=== PATIENT | female | born 1955 | race Caucasian/White ===

== ENCOUNTER 2024-02-29 11:05 | Day surgery (SDC) | payer MEDICAID, OTHER, SELFPAY ==
[2024-02-29] VITALS (10 sets, daily range): BP systolic 114–171; BP diastolic 55–101; BMI 38.1
[2024-02-29 11:58] LABS: Glucose - Point of Care 96 mg/dl (70-99)
--- NOTE | 2024-02-29 14:32 | ITS.CL.CATH ---
Salvage Laborer - Catheterization
Cardiac Catheterization
Procedure Report:
CARDIAC CATHETERIZATION REPORT
Date of Procedure: 02/29/2024
Referring: Jayme Marsh MD
Indication: Exertional dyspnea with abnormal stress test
�
HEMODYNAMIC DATA
AO: 185/100
LV: 185/16
�
LEFT VENTRICULOGRAPHY: Normal left ventricular wall motion with EF 64%
�
CORONARY ANGIOGRAPHY
Dominance: Right
Left Main: Normal
LAD: The LAD is proximally occluded just past the takeoff of the first septal diamond cutter. There may be a tiny channel although it appears more to be a bridging collateral at the site of occlusion and there is a collateral from the very proximal LAD
to the mid LAD. The mid and distal LAD are underfilled but did not appear to demonstrate any high-grade stenoses. The first diagonal branch originates from the LAD at the point where it reconstitutes from the proximal LAD collateral.
Circumflex: The circumflex gives rise to several small obtuse marginal branches and he is occluded distal to the takeoff of a large bifurcating OM 3. OM 3 has 50% stenosis proximal to the bifurcation site. A relatively small OM 4 fills via
collaterals from the RCA
RCA: Large dominant vessel with tandem 60% mid stenoses. The PDA and four RPLs have mild luminal irregularities
�
Closure Device: None-the procedure was performed via the right radial artery. The Brown's test was normal prior to the procedure.
�
Radiation (mGy): 291
DAP (cm2.Gy): 22.6
Fluoroscopy time: 1.8 minutes
�
CONCLUSIONS
1:�Systemic hypertension
2:�Normal left ventricular function with EF 64%
3. Severe triple-vessel CAD as described
4. Recommend CABG with grafting of the LAD, large OM 3, and RPDA. If the patient refuses CABG a dedicated TOOL DISPATCHER comb machine operator may take on the LAD occlusion but with significant 3 v CAD this is an inferior revascularization strategy. Pt advised to restrict
activities until revascularization has been accomplished
�
�
Copy to: Jayme Marsh MD, Lissette Valentino MD
�
Chandler Oconnell MD, [facility], [facility]
--- NOTE | 2024-02-29 16:03 | PTCARENOTE ---
Educational packets printed from [employer] in Finnish:
1. Coronary Artery Disease
2. Lowering your risk of heart disease
3. Healthy-heart diet
4. Nitroglycerin
== END 2024-02-29 18:00 | disposition home or self-care (01) ==
LOC: CATH 11:05
PROVIDERS: ATTENDING PHYSICIAN Internal Medicine Cardiovascular Disease; FAMILY PHYSICIAN Internal Medicine; REFERRING PHYSICIAN Internal Medicine Cardiovascular Disease
DX: I25.10 Atherosclerotic heart disease of native coronary artery without angina pectoris (principal); I10 Essential (primary) hypertension; R06.09 Other forms of dyspnea; R94.39 Abnormal result of other cardiovascular function study; Z79.82 Long term (current) use of aspirin
CPT/HCPCS: 82962; 93458; C1894; Q9967

== ENCOUNTER 2024-04-14 10:39 | Day surgery (SDC) | payer OTHER, SELFPAY ==
[2024-04-06 12:53] VITALS: BMI 33.2
--- NOTE | 2024-04-06 13:14 | HPS.HSE ---
Family Physician
-
Family Physician: Lissette Valentino
Chief Complaint
-
Shortness of breath. Severe, triple vessel coronary artery disease.
History of Present Illness
The patient is a 68 year old female presenting today with recent complaints of shortness of breath. The patient's primary language is Montserratian. She is accompanied by her daughter, Diana, today for further translation. She notes that she
becomes easily short of breath with minimal activity. She cannot climb 1 flight of stairs without experiencing shortness of breath. In addition to her shortness of breath, she also reports retrosternal, exertional chest discomfort without radiation.
She does have multiple risk factors for coronary artery disease such such hypertension, hyperlipidemia, prediabetes, and an extensive family history of cardiovascular issues. Reportedly, her father at a young age due to a myocardial infarction.
Because of her risk factors, she was advised to undergo an echocardiogram and stress test for symptom evaluation. An echocardiogram on 12/20/2023 noted a preserved ejection fraction without significant valvular abnormalities. Her stress test on
02/15/2024, however, had very deep ST depressions, suggesting apical ischemia. She proceeded with a cardiac catheterization on 02/29/2024. Severe tipple vessel coronary artery disease was noted and CABG with grafting of the LAD, large OM 3, and RPDA
was recommended. The patient at this time does not feel comfortable proceeding with CABG and would instead prefer to undergo RCA and left circumflex PCI. She denies any current complaints today such as chest pain and shortness of breath at rest,
palpitations, nausea, vomiting, diarrhea, lightheadedness, dizziness, cough, sore throat, or fever.
Medical History
Past Medical History
Past Medical History: Reports Other
Additional Past Medical History:
1. Shortness of breath with associated exertional chest discomfort.
2. Severe, triple vessel coronary artery disease.
3. Hypertension.
4. Hyperlipidemia.
5. CVA, 2018, without residual deficits.
6. Fatty liver disease.
7. Migraines.
8. Vertigo.
9. Herniated lumbar discs.
10. Arthritis.
11. Hypothyroidism.
12. Obesity, BMI 33.2.
Past Surgical History: Reports Other
Additional Past Surgical History:
1. Cardiac catheterization.
2. Cholecystectomy.
Social History
Tobacco: Non-smoker
Alcohol: None
Living: Alone (in a first floor apartment. )
Family History
Family History: Early CAD
Allergies / Home Medications
Allergy/Medication List:
Home medications:
1. Aspirin 81 mg p.o. daily.
2. Atorvastatin 40 mg p.o. daily.
3. Levothyroxine 88 mcg p.o. daily.
4. Metoprolol Succinate 50 mg p.o. daily.
5. Nitroglycerin 0.4 mg sublingual every 5 minutes as needed (maximum of 3 doses).
6. Olmesartan-Hydrochlorothiazide 40-25 mg, 1/2 tablet p.o. daily.
Allergies: No known allergies.
Review of Systems
-
A 12 point ROS was completed and negative except as noted: Yes
Physical Exam
Vital Signs
Blood pressure 152/78. Heart rate 65. Respirations 18. Pulse ox 97% on room air.
Height 5 feet. Weight 77 kg. BMI 33.2.
Physical Exam
General: Well Developed, Well Nourished and No Apparent Distress
HEENT: NormoCephalic, Moist mucous membranes, Atraumatic and PERRLA
Respiratory: Clear
Cardiac: Regular Rhythm
GI: Soft, Non Tender, Non Distended and Other (Obese. )
Musculoskeletal: Normal Gait & Station
Skin: Warm and Dry
Neuro: AO x 3 and Nonfocal/grossly intact
Laboratory Results
-
DIAGNOSTIC STUDIES as of 04/06/2024: White blood cell count 9.8. Hemoglobin 14.2. Platelet count 234,000.
DIAGNOSTIC STUDIES as of 04/07/2024: Sodium 142. Potassium 4.1. BUN 14. Creatinine 0.6. Glucose 95. Calcium 10.2. AST 35. ALT 29. Albumin 5.0.
EKG 04/06/2024: Normal sinus rhythm. Low voltage QRS. Inferior infarct, age undetermined. Cannot rule out anterior infarct, age undetermined.
Impression/Plan
-
IMPRESSION/PLAN:
1. Shortness of breath and triple vessel coronary artery disease: The patient is in need of a RCA and left circumflex PCI with Dr. Aldair Sierra on 04/14/2024. The benefits and risks of the procedure have been explained to the patient. The patient
understands these risks and wishes to proceed. She is aware to continue her baby Aspirin daily up to and including the morning of her procedure.
[2024-04-06 13:42] LABS: % Basophils 0.7 % (0-2); % Eosinophils 1.1 % (0-6); % Immature Granulocytes 0.2 % (0-0.5); % Lymphocytes 36.4 % (20.5-51.1); % Monocytes 5.9 % (1.7-9.3); % Neutrophils 55.7 % (42.2-75.2); Absolute Basophils 0.1 10^3/uL (0-0.2); Absolute Eosinophils 0.1 10^3/uL (0-0.7); Absolute Lymphocytes 3.6 10^3/uL (1.2-3.4); Absolute Monocytes 0.6 10^3/uL (0.1-0.6); Absolute Neutrophils 5.5 10^3/uL (1.4-6.5); Hematocrit 41.6 % (37.0-47.0); Hemoglobin 14.2 g/dL (12.0-16.0); Mean Corp Hgb Conc. 34.1 g/dL (33.0-37.0); Mean Corpuscular Hgb 28.8 pg (27.0-31.0); Mean Corpuscular Volume 84.4 fL (81.0-99.0); Mean Platelet Volume 10.4 fL (7.4-10.4); Nucleated Red Blood Cells % 0 %; Platelet Count 234 10^3/uL (130-400); Red Blood Cell Count 4.93 10^6/uL (4.20-5.40); Red Cell Dist. Width 13.7 % (11.5-14.5); White Blood Cell Count 9.8 10^3/uL (4.8-10.8)
[2024-04-07 15:37] LABS: ALT (SGPT) 29 U/L (0-35); AST (SGOT) 35 U/L (14-36); Alkaline Phosphatase 82 U/L (38-126); Blood Urea Nitrogen 14 mg/dl (7-17); Calcium 10.2 mg/dl (8.4-10.2); Carbon Dioxide 28 mmol/L (22-30); Chloride 102 mmol/L (98-107); Estimated Creatinine Clearance 82 ml/min; Glucose 95 mg/dl (70-99); Potassium 4.1 mmol/L (3.5-5.1); Sodium 142 mmol/L (135-145); Total Bilirubin 0.8 mg/dl (0.2-1.3); eGFR > 60.00
[2024-04-14] VITALS (17 sets, daily range): BP systolic 114–164; BP diastolic 73–96
[2024-04-14 12:29] LABS: ACT-LR - POC 303 Seconds (116-155)
[2024-04-14 12:55] LABS: ACT-LR - POC 276 Seconds (116-155)
[2024-04-14 13:17] LABS: ACT-LR - POC 358 Seconds (116-155)
[2024-04-14 13:51] LABS: ACT-LR - POC 340 Seconds (116-155)
[2024-04-14 14:32] LABS: ACT-LR - POC 277 Seconds (116-155)
--- NOTE | 2024-04-14 16:09 | PTCARENOTE ---
pt w oozing from rt groin site when received from labor relations teacher. pressure held for 20 min and new innoseal pad applied. no hematoma, no oozing at present.
--- NOTE | 2024-04-14 16:49 | CM ---
Chart reviewed. Patient is independent of ADLS, lives with her daughter in a 2nd floor apartment, [address], ambulates with a RW. Patient with a supportive daughter. Plan is for the patient to return home.
[2024-04-14] MEDS: TYLENOL 650 MG PO (18:09)
--- NOTE | 2024-04-14 19:30 | PTCARENOTE ---
pt is sr on the monitor, hr in the 73, vss. right radial is cdi. right groin continues to ooze,dressing change x3. area is soft and nontender. pt c/o WALTERS, Tylenol given as ordered, see MAR. pt educated on plan of care and pt verbalized understanding.
call azevedo within reach.
--- NOTE | 2024-04-14 20:36 | PTCARENOTE ---
received patient on walking rounds, previous RN in room holding manual pressure on right groin, redressed with inoseal , 4x4 and Tegaderm. sand bag placed on right groin. right radial has R band, 3cc of air taken out as ordered. distal pulse
palpable. patient is Estonian speaking, daughter in room and assisted with admission. also language line is at bedside. patient has not voided yet, bladder scanned for 515 cc. informed patient that she needs to void on bed hernández or purwick will be
placed,patient choose the bedpan and voided 2oocc of yellow urine,patient has relief. patient is very tired, encouraged patient to rest. patient demonstrated how to use call azevedo,daughter is leaving the bedside and going home.
--- NOTE | 2024-04-14 20:44 | PTCARENOTE ---
when assessing right groin, bleeding, changed dsg. and another hemostasis pad applied along with sandbag. will continue to monitor.
--- NOTE | 2024-04-14 21:00 | PTCARENOTE ---
right radial R band removed, dsg. placed. distal pulse palpable. right fem. artery continues to ooze,changed dsg. sand bag applied, repositioned patient for comfort.
--- NOTE | 2024-04-14 21:27 | ITS.CL.PN ---
Qc Manager - Procedure Note
Procedure
Procedure Note:
CARDIAC CATHETERIZATION REPORT
Date of Procedure: 04/14/24
Referring: Dr. Jayme Marsh MD
Indication: anginal chest pain, multi-vessel coronary artery disease. Note: Surgical revascularization was felt to be the optimal strategy for this patient with 3v CAD including LAD SAFEKEEPING CLERK. The patient met with a CT surgeon. However, they are
absolutely opposed to undergoing surgery and thus sought options for percutaneous revascularization. After extensive discussion with the patient and referring academic coordinator, a strategy was agreed upon of initial revascularization of the RCA/LCx, with
medical management of the LAD SAFEKEEPING CLERK and staged LAD SAFEKEEPING CLERK PCI only if medical management failed.
PROCEDURE(S)
1. moderate sedation >120 minutes
2. ultrasound guided vascular access right radial artery
3. selective angiography of right upper extremity
4. ultrasound guided vascular access right femoral artery
5. left heart catheterization
6. coronary angiography
7. iFR of OM1
8. IVUS of OM1
9. PCI with stent to OM1
10. iFR of RPDA
11. iFR of RPAV
12. IVUS of RCA
13. PCI with stent to RCA/RPAV
ACCESS:
1. 6F right radial artery (note: abandoned due to spasm/inadequate vessel caliber on peripheral angiography; closure: TR band)
2. 6F right femoral artery (closure: 6F Angioseal)
CATHETERS
1. 6F EBU3.5 guide
2. 6F RJ4 guide
Moderate Sedation: >120 minutes of moderate sedation was utilized.�An independent certified medical aide was present to assist with and help manage the patient's level of consciousness and physiologic status.
Ultrasound Guided Vascular Access (right radial artery): Ultrasound was utilized for vascular access. The vessel was visualized under ultrasound and noted to be patent.�An image of the vessel was stored permanently in the patient's medical
record.�Under direct ultrasound guidance, vascular access was obtained using a modified Seldinger technique and a 6 Chadian sheath was placed.
Selective right upper extremity angiography
Given difficulty in advancing wires from the right radial artery, retrograde selective angiography of the right radial artery was performed and the proximal vessel was noted to be small caliber. Thus decision was made to transition to femoral access.
Ultrasound Guided Vascular Access (right femoral artery): Ultrasound was utilized for vascular access. The vessel was visualized under ultrasound and noted to be patent.�An image of the vessel was stored permanently in the patient's medical
record.�Under direct ultrasound guidance, vascular access was obtained using a modified Seldinger technique and a 6 Chadian sheath was placed.
HEMODYNAMIC DATA
LV 178/10 (EDP 18) mmHg
AO 180/93 (mean 130) mmHg
CORONARY ANGIOGRAPHY
Dominance: Right
LM: large, normal
LAD: large vessel giving rise to a single large diagonal branch. There is a total occlusion just after S1 with reconstitution just before the large diagonal. The vessel is filled via L-L collaterals including a serpiginous bridging collateral from
the proximal to mid LAD, a small microchannel that appears to remain within vessel architecture, as well as retrograde L-L collaterals and faint retrograde R-L septal collaterals. The SAFEKEEPING CLERK is about 20 cm, straight, without evidence of severe
calcification. However, its distal and proximal caps both are at bifurcations.
LCx: large vessel giving rise to a very small OM1, very small OM2, large OM3, and small OM4. There is a 60% stenosis in the large OM3 that was further assessed by iFR. The LCx it totally occluded prior to the OM4 with the OM4 filled via R-L
collaterals.
RCA: large vessel giving rise to a large PRDA, large RPL1, small RPL2, small RPL3, moderate caliber RPL4, and moderate caliber RPL5. There are serial 60% stenoses in the mid to distal RCA with heavy calcification. The RPDA has mild ostial stenosis.
The RPL1 has mild ostial stenosis. There is severe disease spanning the RPAV between the RPDA and RPL1. There is a 50% stenosis spanning RPL2.
PCI with AJITH to OM1, iFR of OM1, IVUS of OM1
Heparin was given to achieve ACT>300. An Omni wire was flushing and zeroed outside the body and then advanced to the left main. The wire introducer was removed and the system flushed, after which pressure of the wire and guide were normalized. The
wire was advanced to the distal OM1 and iFR recorded at 0.86. iFR pullback was performed noting a focal pattern with the majority of the contribution from the OM1 lesion. On return to the left main, iFR appropriately normalized to ~1.0, confirming
lack of wire drift. We then proceeded with PCI of the OM1. Over the Omni wire, initial lesion preparation was performed with a 2.0x12 balloon with full expansion. IVUS catheter would not advance. Further lesion preparation was performed with a
3.0x12 mm NC balloon taken to nominal pressure with full expansion. IVUS was performed demonstrating mild calcification and a distal vessel reference of 2.75 mm and proximal reference of 3.0 mm. A Xience Skypoint 2.75x23 mm stent was delivered and
deployed, with post dilation of the mid to proximal stent performed with the 3.0 NC balloon to high pressure. There was loss of the small inferior branch of the vessel. The patient had no symptoms and there were no changes on telemetry. The branch
was rescued by re-wiring it through stent struts and gently dilating the struts with a 1.5 mm balloon with tenriism of TIMI3 flow. Final IVUS demonstrate full stent expansion and apposition without dissection. Angiographic result was excellent.
We then turned out attention to the RCA.
PCI with AJITH to RPAV/AUDIT SENIOR ASSOCIATE, iFR of RPAV, iFR of RPDA, IVUS of RPAV/RCA
The Omni wire was used to perform iFR of the RPDA and the RPAV with pullback. iFR was performed distal to the stenosis spanning RPL2 and was positive at 0.78. There was minimal contribution from the stenosis at RPL2, significant delta iFR from the
RPAV disease between RPDA and RPL1, and further significant contribution from the mid-RCA disease. iFR was separately measured in the RPDA and was borderline at 0.89. There was no significant contribution from the ostial RPDA stenosis. Thus, the
decision was made to perform PCI of the mid-distal RCA into the RPVA up to and sparing the takeoff of RPL1. Initial lesion preparation of the RPAV was performed with the 2.0x12 balloon followed by a 2.5 mm NC balloon with full expansion. The RPAV
back to the distal RCA was then stented with a Xience Skypoint 2.5x23 mm stent. The jailed RPDA had EMERITA 3 flow. The prox to mid RCA was then pre-dilated with a 3.5 mm NC with full expansion, followed by stenting with overlapping 3.5x38 and 4.0x12
mm Xience Skypoint stents. The RDPA was rewired through stent struts. POT was performed of the the RPAV/RPDA bifurcation with a 3.5 mm NC balloon. The remainder of the RCA stent was postdilated with a 3.75 mm NC balloon taken to 18 isreal with full
expansion. Final angiographic result was excellent with EMERITA 3 flow in all branches. The wire and guide were removed and a TR band placed. The patient was loaded with 600 mg Plavix. Patient and daughter were updated.
RADIATION: dose 2079 mGy; DAP 131 Gy*cm2; fluoroscopy time 51.1 min
CONCLUSIONS
1. severe triple vessel coronary artery disease as described
2. mildly elevated LV filling pressure and no aortic stenosis
3. successful PCI of the OM1 with a 2.75x23 mm Xience Skypoint AJITH post-dilated with a 3.0 NC balloon
4. successful IVUS-guided PCI of the RCA-RPAV with overlapping 2.5x23, 3.5x34, and 4.0x12 mm Xience Skypoint AJITH, POT of the RPDA/RPAV bifurcation with a 3.5 mm NC balloon, and high pressure post-dilation of the remainder of the RCA with a 3.75 mm
NC balloon.
RECOMMENDATIONS
1. expectant management after cardiac catheterization via right radial artery and right femoral artery approach
2. DAPT with ASA/Plavix for 6 months, then ASA for life
3. aggressive secondary prevention of coronary artery disease
4. medical optimization of anti-anginal therapy
5. if patient has ongoing angina despite medical optimization, PCI of the LAD SAFEKEEPING CLERK would be an option. This would be a moderate risk procedure and could be undertaken if patient is agreeable to bailout surgical revascularization.
Copy to: Dr. Jayme Marsh MD (academic coordinator); Dr. Lissette Valentino MD (PCP)
Signed: Aldair Sierra MD, PhD
[2024-04-14] MEDS: LIPITOR 40 MG PO (22:06)
--- NOTE | 2024-04-14 22:13 | PTCARENOTE ---
right groin dressing saturated with blood, removed dressing,held manual pressure, changed dressing, sand bag applied.patient presently on bedpan.
--- NOTE | 2024-04-15 00:22 | PTCARENOTE ---
Assumed care of the patient at 2300. Dressing right groin with bright red bloody drainage is intact, with sandbag in place, area soft with pedal pulse present. Reassessed in one hour and no leakage noted beyond dressing. Dressing removed, no active
bleeding noted. Pressure dressing applied, sandbag replaced and will reassess in an hour. Call azevedo in reach, maintaining bedrest.
--- NOTE | 2024-04-15 01:16 | PTCARENOTE ---
Sandbag removed from the right groin, dressing is dry and intact, no bleeding noted at this time.
[2024-04-15 03:37] VITALS: BP 132/83
[2024-04-15 04:34] LABS: Hematocrit 38.7 % (37.0-47.0); Hemoglobin 12.9 g/dL (12.0-16.0); Mean Corp Hgb Conc. 33.3 g/dL (33.0-37.0); Mean Corpuscular Hgb 28.7 pg (27.0-31.0); Mean Platelet Volume 10.7 fL (7.4-10.4); Platelet Count 208 10^3/uL (130-400); Red Cell Dist. Width 13.4 % (11.5-14.5); White Blood Cell Count 8.3 10^3/uL (4.8-10.8)
[2024-04-15 04:53] LABS: Blood Urea Nitrogen 15 mg/dl (7-17); Calcium 9.3 mg/dl (8.4-10.2); Carbon Dioxide 25 mmol/L (22-30); Chloride 102 mmol/L (98-107); Estimated Creatinine Clearance 82 ml/min; Glucose 97 mg/dl (70-99); HDL Cholesterol 37 mg/dl; LDL Cholesterol, Calculated 51 mg/dl; Potassium 3.6 mmol/L (3.5-5.1); Sodium 136 mmol/L (135-145); Total Cholesterol 104 mg/dl (50-199); Triglyceride 84 mg/dl (10-149); Very Low Density Lipoprotein 16 mg/dl (0-30); eGFR > 60.00
[2024-04-15] MEDS: SYNTHROID 88 MCG PO (06:56)
[2024-04-15 07:45] VITALS: BP 121/76
--- NOTE | 2024-04-15 08:35 | W.PN.CD ---
Addendum entered and electronically signed by Marco A Us MD 04/15/24 14:01:
I saw and examined the patient.
The REGIONAL FORESTER's note was reviewed and I agree with the note.
Comment: Cath site good. Tele good. Lungs clear. OK for home. No complications detected.
Original Note:
Today's Communication / Plan
-
d/c home f/u DR. Marsh
Impression / Plan
-
Pt denies CP, palps SOB. Mild tenderness at R groin and R radial sites.
CAD:
s/p multivessel PCI
R radial stable no hematoma, palpable R radial pulse
R groin no hematoma
d/c home follow up with Dr. Marsh
Physical Exam
Vital Signs/Labs
Vital Signs
Temp Pulse Resp BP Pulse Ox
97.6 F 71 18 132/83 98
04/15/24 07:43 04/15/24 07:30 04/15/24 07:43 04/15/24 03:37 04/15/24 07:43
04/15/24 03:56
04/15/24 03:56
Triglycerides 84 mg/dl (10-149) 04/15/24 03:56
LDL Cholesterol, Calc 51 mg/dl 04/15/24 03:56
VLDL Cholesterol, Calc 16 mg/dl (0-30) 04/15/24 03:56
HDL Cholesterol 37 mg/dl 04/15/24 03:56
Physical Exam
Constitutional: No acute distress and Comfortable
Cardiovascular: Rhythm & rate is regular and Pedal edema is absent
Respiratory: Respiratory effort normal and Lungs clear to auscul.
Neuro/Psych: Alert and Oriented
Other: Cath Site (R radial no hematoma, palpable R radial pulse. R groin sodt, no hematoma )
Data Reviewed
-
Date of Service: April 15, 2024
EKG: Tracing Personally Visualized and interpreted (NSR 70 bpm) and Other (Tele: NSR)
Labs: Labs Reviewed by me
--- NOTE | 2024-04-15 08:43 | W.DS.TRANS ---
DC Summary - Commercial Lender
-
Discharge Instructions:
Discharge Diagnosis/Procedures Angioplasty and stent x1 to Left Circumflex
artery, x1 to Right Coronary artery
Diet Low Cholesterol
Activity No strenuous activity
Additional Activity see attached post cath instructions
Driving Restrictions No driving for 24 hours
Other Services Cardiac Rehab
Instructions:
Stand-Alone Forms: DC Instructions- Cath/EP Lab
Changes to Home Medications: Yes
Discharge Medications:
DC Medications w/original date entered in [employer]
aspirin 81 mg capsule 81 mg PO DAILY 02/29/24
levothyroxine 88 mcg capsule 88 mcg PO DAILY 02/29/24
metoprolol succinate 50 mg tablet,extended release 24 hr 50 mg PO DAILY 02/29/24
nitroglycerin 0.4 mg sublingual tablet 0.4 mg sublingual [id number] PRN chest pain #25 tabs 02/29/24
atorvastatin 40 mg tablet 40 mg PO HS 04/14/24
clopidogrel 75 mg tablet 75 mg PO DAILY #90 tabs 04/14/24
olmesartan 40 mg-hydrochlorothiazide 25 mg tablet 0.5 tab PO DAILY 04/14/24
Home Medication Changes
New: clopidogrel 75 mg tablet 75 mg PO DAILY #90 tabs 04/14/24
Pending Results: No
[2024-04-15] MEDS: BENICAR 20 MG PO (09:01)
[2024-04-15] MEDS: TOPROL XL 50 MG PO (09:01)
[2024-04-15] MEDS: PLAVIX 75 MG PO (09:01)
[2024-04-15] MEDS: ORETIC 12.5 MG PO (09:02)
[2024-04-15] MEDS: ASPIR LOW (ENTERIC COATED) 81 MG PO (09:02)
[2024-04-15 12:05] VITALS: BP 149/84
[2024-04-15 14:16] VITALS: BP 143/67
--- NOTE | 2024-04-15 14:55 | PTCARENOTE ---
d/c instructions read to pt and pt verbalized understanding. iv and tele removed. pt left w/ belongings from room and d/c instructions. pt left via wheelchair w/ staff member.
== END 2024-04-15 14:57 | disposition home or self-care (01) ==
LOC: CATH 10:39
PROVIDERS: Nurse Practitioner; ATTENDING PHYSICIAN Student in an Organized Health Care Education/Training Program; FAMILY PHYSICIAN Internal Medicine; OTHER PHYSICIAN Internal Medicine Cardiovascular Disease
DX: I25.119 Atherosclerotic heart disease of native coronary artery with unspecified angina pectoris (principal); I10 Essential (primary) hypertension; E78.5 Hyperlipidemia, unspecified; K76.0 Fatty (change of) liver, not elsewhere classified; Z86.73 Personal history of transient ischemic attack (TIA), and cerebral infarction without residual deficits; G43.909 Migraine, unspecified, not intractable, without status migrainosus; R42 Dizziness and giddiness; M51.26 Other intervertebral disc displacement, lumbar region; M19.90 Unspecified osteoarthritis, unspecified site; E03.9 Hypothyroidism, unspecified; E66.9 Obesity, unspecified; Z68.33 Body mass index [BMI] 33.0-33.9, adult; Z90.49 Acquired absence of other specified parts of digestive tract; Z79.899 Other long term (current) drug therapy; Z79.82 Long term (current) use of aspirin; Z79.890 Hormone replacement therapy; I25.82 Chronic total occlusion of coronary artery
CPT/HCPCS: 99152; 99153; 93799; 92979; 92978; 36415; 76937; 80048; 80053; 80061; 85025; 85027; 85347; 93005; 93458; C1725; C1753; C1769; C1874; C1894; C9600; C9601; Q9967